=== PATIENT | female | born 1995 | race American Indian/Alaskan Native ===

== ENCOUNTER 2021-04-25 10:37 | Observation (INO) | payer OTHER ==
[2021-04-25] MEDS ORDERED: FAMOTIDINE 20 MG/2 ML INJ IV ONE (11:25)
[2021-04-25] MEDS ORDERED: diphenhydrAMINE 50 MG/ML VIAL IV ONE (11:25)
[2021-04-25] MEDS ORDERED: DICYCLOMINE 20 MG TAB PO ONE (11:25)
[2021-04-25] MEDS ORDERED: SODIUM CHLORIDE 0.9% 1000 ML 1,000 ML IV ONE (11:25)
[2021-04-25] MEDS ORDERED: METOCLOPRAMIDE 10 MG/2 ML INJ IV ONE (11:25)
[2021-04-25 11:35] LABS: Basophils # (Auto) 0.1 K/mm3 (0.0-0.1); Basophils % (Auto) 0.3 % (0.0-1.8); Eosinophils # (Auto) 0.1 K/mm3 (0.0-0.4); Eosinophils % (Auto) 0.3 % (0.0-4.3); Hemoglobin 11.1 gm/dl (10.1-14.3); Lymphocytes # (Auto) 2.2 K/mm3 (1.2-5.4); Mean Corpuscular HGB Conc 32 % (30-34); Mean Corpuscular Volume 74 fl (79-97); Monocytes # (Auto) 1.3 K/mm3 (0.0-0.8); Monocytes % (Auto) 7.2 % (0.0-7.3); Platelet Count 291 K/mm3 (140-440); Red Blood Count 4.75 M/mm3 (3.65-5.03); Red Cell Distribution Width 14.3 % (13.2-15.2)
[2021-04-25 11:49] LABS: Bilirubin,Urine NEG (Negative); Blood,Urine SM (Negative); Color,Urine Yellow (Yellow); Mucus,Urine 2+ /HPF; Urobilinogen,Urine < 2.0 mg/dL (<2.0)
[2021-04-25 11:51] LABS: Alanine Aminotransferase 8 units/L (7-56); Albumin 4.3 g/dL (3.9-5); BUN/Creatinine Ratio 11; Blood Urea Nitrogen 9 mg/dL (7-17); Calcium 9.6 mg/dL (8.4-10.2); Hemolysis Index 11
--- NOTE | 2021-04-25 12:54 | Vascular Lab Report ---
. DUPLEX DOPPLER LOWER EXTREMITY VEINS, RIGHT INDICATION / CLINICAL INFORMATION: RL leg pain. TECHNIQUE: Duplex doppler imaging was performed through the veins of the right lower extremity using venous comp ression and other maneuvers. COMPARISON: None available. FINDINGS: RIGHT COMMON FEMORAL VEIN: Negative. RIGHT FEMORAL VEIN: Negative. RIGHT POPLITEAL VEIN: Negative. RIGHT CALF VEINS: Negative. ADDITIONAL FINDINGS: None. IMPRESSION: 1. No sonographic evidence for DVT in the right lower extremity. Signer Name: Adrian Mcmahon MD Signed: 04/25/2021 12:50 PM Workstation Name: [id number]
--- NOTE | 2021-04-25 13:29 | Cat Scan Report ---
CT abdomen pelvis w con INDICATION / CLINICAL INFORMATION: RLQ pain with n/v-PO AND IV CONTRAST. TECHNIQUE: Axial CT images were obtained through the abdomen and pelvis after 100 cc of Omnipaque [address] scans at this location are performed using CT dose reduction for ALARA by means of automated exposure control. COMPARISON: None available. FINDINGS: LOWER CHEST: No significant abnormality LIVER: No significant abnormality GALLBLADDER/BILIARY TREE: No significant abnormality PANCREAS: No significant abnormality SPLEEN: No significant abnormality ADRENALS: No significant abnormality KIDNEYS / URETER: No significant abnormality URINARY BLADDER: No significant abnormality REPRODUCTIVE ORGANS: No significant abnormality STOMACH / BOWEL: Small bowel and colon demonstrate no evidence of mechanical obstruction or inflammat ion. The appendix is borderline dilated, measuring 7 mm. There is mild periappendiceal fat stranding. LYMPH NODES: No significant adenopathy. VASCULATURE: No significant abnormality. OTHER: No free air, free fluid, or focal fluid collection is identified. SKELETAL SYSTEM: No acute osseous findings. IMPRESSION: 1. Borderline dilated appendix with mild periportal fat stranding. Findings are suspicious for early acute uncomplicated appendicitis. 2. No other acute abnormality. Signer Name: Adrian Mcmahon MD Signed: 04/25/2021 1:25 PM Workstation Name: [id number]
[2021-04-25] MEDS ORDERED: PIPERACIL/TAZOBACTA 4.5/NS 100 4.5 GM/100 ML VIAL IV ONE (13:38)
--- NOTE | 2021-04-25 13:54 | Emergency Department Report ---
ED Abdominal Pain HPI - General Chief Complaint: Abdominal Pain Stated Complaint: BACK PAIN/RT LEG PAIN/CRAMPS Time Seen by Provider: 04/25/21 10:59 Source: patient Mode of arrival: Ambulatory Limitations: No Limitations - History of Present Illness Initial Comments: This is a 26-year-old female nontoxic, well nourished in appearance, no acute signs of distress presents to the ED with c/o of nausea and vomiting and abdominal pain several days. Patient stated has radiation to right lower leg. Denies any recent travels, long car rides or recent hospital stays. Patient describes vomiting as food content and yellow gastric acid. Patient describes abdominal pain as sharp and aching with level of 8/10 primarily to right lower abdomen. Patient denies chest pain, short of breath, fever, hemoptysis, blood in stool, chills, headache, stiff neck, numbness or tingling. Patient denies any diarrhea or constipation. Denies any blood in stool. Patient denies any drug allergies or significant past medical history. MD Complaint: abdominal pain -: days(s) Location: RLQ Radiation: none Migration to: no migration Severity: mild Severity scale (0 -10): 8 Quality: aching Consistency: constant Improves With: nothing Worsens With: nothing Associated Symptoms: nausea, vomiting. denies: diarrhea, fever, chills, constipation, dysuria, hematemesis, hematochezia, melena, hematuria, anorexia, syncope - Related Data Allergies Allergy/AdvReac Type Severity Reaction Status Date / Time No Known Allergies Allergy Verified 04/25/21 10:50 ED Review of Systems ROS: Stated complaint: BACK PAIN/RT LEG PAIN/CRAMPS Other details as noted in HPI Comment: All other systems reviewed and negative Constitutional: denies: chills, fever Eyes: denies: eye pain, eye discharge, vision change ENT: denies: ear pain, throat pain Respiratory: denies: cough, shortness of breath, wheezing Cardiovascular: denies: chest pain, palpitations Endocrine: no symptoms reported Gastrointestinal: abdominal pain, nausea, vomiting. denies: diarrhea, constipation, hematemesis, melena, hematochezia Genitourinary: denies: urgency, dysuria, discharge Musculoskeletal: denies: back pain, joint swelling, arthralgia Skin: denies: rash, lesions Neurological: denies: headache, weakness, paresthesias Psychiatric: denies: anxiety, depression Hematological/Lymphatic: denies: easy bleeding, easy bruising ED Past Medical Hx - Past Medical History Previous Medical History?: Yes Additional medical history: SCD - Surgical History Past Surgical History?: No - Social History Smoking Status: Never Smoker Substance Use Type: None ED Physical Exam - General Limitations: No Limitations General appearance: alert, in no apparent distress - Head Head exam: Present: atraumatic, normocephalic - Eye Eye exam: Present: normal appearance - Neck Neck exam: Present: normal inspection, full ROM. Absent: lymphadenopathy - Respiratory Respiratory exam: Present: normal lung sounds bilaterally. Absent: respiratory distress, wheezes, rales, rhonchi, stridor, chest wall tenderness, accessory muscle use, decreased breath sounds, prolonged expiratory - Cardiovascular Cardiovascular Exam: Present: regular rate, normal rhythm, tachycardia, normal heart sounds. Absent: irregular rhythm, systolic murmur, diastolic murmur, rubs, gallop - GI/Abdominal GI/Abdominal exam: Present: soft, tenderness (RLQ), normal bowel sounds. Absent: distended, guarding, rebound, rigid, diminished bowel sounds - Extremities Exam Extremities exam: Present: normal inspection, full ROM, tenderness, normal capillary refill, calf tenderness. Absent: joint swelling - Expanded Lower Extremity Exam Right Hip exam: Present: normal inspection, full ROM. Absent: tenderness, swelling Upper Leg exam: Present: normal inspection, full ROM. Absent: tenderness, swelling Knee exam: Present: normal inspection, full ROM. Absent: tenderness, swelling Lower Leg exam: Present: normal inspection, full ROM, tenderness. Absent: swelling, abrasion, laceration, ecchymosis, deformity, crepidus, dislocation, erythema, palpable cord, Wade's sign Ankle exam: Present: normal inspection, full ROM. Absent: tenderness, swelling Foot/Toe exam: Present: normal inspection, full ROM. Absent: tenderness, swelling Neuro vascular tendon exam: Present: no vascular compromise Gait: Positive: observed and normal 1 - Pain here 2 - Pain here - Back Exam Back exam: Present: normal inspection, full ROM. Absent: tenderness, CVA tenderness (R), CVA tenderness (L), muscle spasm, paraspinal tenderness, vertebral tenderness, rash noted - Neurological Exam Neurological exam: Present: alert, oriented X3, normal gait - Psychiatric Psychiatric exam: Present: normal affect, normal mood - Skin Skin exam: Present: warm, dry, intact, normal color. Absent: rash ED Course Vital Signs 04/25/21 10:50 Temperature 99.3 F Pulse Rate 107 H Respiratory 18 Rate Blood Pressure 126/84 O2 Sat by Pulse 99 Oximetry - Reevaluation(s) Reevaluation #1: 04/25/21 13:55 Patient is speaking in full sentences with no signs of distress noted. - Consultations Consultation #1: 04/25/21 14:17 Patient has been consulted with Duncan Mistry (general surgery) about patient history, physical exam, and labs/imaging results and agrees for admission with hospitalist with patient on NPO and continue antibiotics. Consultation #2: 04/25/21 14:52 Patient has been consulted with Dr. Meza about patient history, physical exam, and labs/imaging results and accepts patient to services. ED Medical Decision Making - Lab Data Result diagrams: 04/25/21 11:18 04/25/21 11:18 Lab Results 04/25/21 04/25/21 04/25/21 Range/Units 11:18 11:18 11:18 WBC 18.7 H (4.5-11.0) K/mm3 RBC 4.75 (3.65-5.03) M/mm3 Hgb 11.1 (10.1-14.3) gm/dl Hct 35.0 (30.3-42.9) % MCV 74 L (79-97) fl MCH 24 L (28-32) pg MCHC 32 (30-34) % RDW 14.3 (13.2-15.2) % Plt Count 291 (140-440) K/mm3 Lymph % (Auto) 12.0 L (13.4-35.0) % [place] % (Auto) 7.2 (0.0-7.3) % Eos % (Auto) 0.3 (0.0-4.3) % Baso % (Auto) 0.3 (0.0-1.8) % Lymph # (Auto) 2.2 (1.2-5.4) K/mm3 [place] # (Auto) 1.3 H (0.0-0.8) K/mm3 Eos # (Auto) 0.1 (0.0-0.4) K/mm3 Baso # (Auto) 0.1 (0.0-0.1) K/mm3 Seg Neutrophils % 80.2 H (40.0-70.0) % Seg Neutrophils # 15.0 H (1.8-7.7) K/mm3 Sodium 136 L (137-145) mmol/L Potassium 4.1 (3.6-5.0) mmol/L Chloride 99.5 (98-107) mmol/L Carbon Dioxide 23 (22-30) mmol/L Anion Gap 18 mmol/L BUN 9 (7-17) mg/dL Creatinine 0.8 (0.6-1.2) mg/dL Estimated GFR > 60 ml/min BUN/Creatinine Ratio 11 % Glucose 98 (65-100) mg/dL Calcium 9.6 (8.4-10.2) mg/dL Total Bilirubin 0.80 (0.1-1.2) mg/dL AST 14 (5-40) units/L ALT 8 (7-56) units/L Alkaline Phosphatase 54 (35-129) units/L Total Protein 8.3 H (6.3-8.2) g/dL Albumin 4.3 (3.9-5) g/dL Albumin/Globulin Ratio 1.1 % Lipase 14 (13-60) units/L HCG, Qual Negative (Negative) Urine Color (Yellow) Urine Turbidity (Clear) Urine pH (5.0-7.0) Ur Specific [place] (1.003-1.030) Urine Protein (Negative) mg/dL Urine Glucose (UA) (Negative) mg/dL Urine Ketones (Negative) mg/dL Urine Blood (Negative) Urine Nitrite (Negative) Urine Bilirubin (Negative) Urine Urobilinogen (<2.0) mg/dL Ur Leukocyte Esterase (Negative) Urine WBC (Auto) (0.0-6.0) /HPF Urine RBC (Auto) (0.0-6.0) /HPF U Epithel Cells (Auto) (0-13.0) /HPF Urine Mucus /HPF 04/25/21 Range/Units 11:31 WBC (4.5-11.0) K/mm3 RBC (3.65-5.03) M/mm3 Hgb (10.1-14.3) gm/dl Hct (30.3-42.9) % MCV (79-97) fl MCH (28-32) pg MCHC (30-34) % RDW (13.2-15.2) % Plt Count (140-440) K/mm3 Lymph % (Auto) (13.4-35.0) % [place] % (Auto) (0.0-7.3) % Eos % (Auto) (0.0-4.3) % Baso % (Auto) (0.0-1.8) % Lymph # (Auto) (1.2-5.4) K/mm3 [place] # (Auto) (0.0-0.8) K/mm3 Eos # (Auto) (0.0-0.4) K/mm3 Baso # (Auto) (0.0-0.1) K/mm3 Seg Neutrophils % (40.0-70.0) % Seg Neutrophils # (1.8-7.7) K/mm3 Sodium (137-145) mmol/L Potassium (3.6-5.0) mmol/L Chloride (98-107) mmol/L Carbon Dioxide (22-30) mmol/L Anion Gap mmol/L BUN (7-17) mg/dL Creatinine (0.6-1.2) mg/dL Estimated GFR ml/min BUN/Creatinine Ratio % Glucose (65-100) mg/dL Calcium (8.4-10.2) mg/dL Total Bilirubin (0.1-1.2) mg/dL AST (5-40) units/L ALT (7-56) units/L Alkaline Phosphatase (35-129) units/L Total Protein (6.3-8.2) g/dL Albumin (3.9-5) g/dL Albumin/Globulin Ratio % Lipase (13-60) units/L HCG, Qual (Negative) Urine Color Yellow (Yellow) Urine Turbidity Slightly-cloudy (Clear) Urine pH 5.0 (5.0-7.0) Ur Specific [place] 1.025 (1.003-1.030) Urine Protein 30 mg/dl (Negative) mg/dL Urine Glucose (UA) Neg (Negative) mg/dL Urine Ketones 20 (Negative) mg/dL Urine Blood Sm (Negative) Urine Nitrite Neg (Negative) Urine Bilirubin Neg (Negative) Urine Urobilinogen < 2.0 (<2.0) mg/dL Ur Leukocyte Esterase Mod (Negative) Urine WBC (Auto) 131.0 H (0.0-6.0) /HPF Urine RBC (Auto) 9.0 (0.0-6.0) /HPF U Epithel Cells (Auto) 9.0 (0-13.0) /HPF Urine Mucus 2+ /HPF - Radiology Data [facility] [address] [place] [address] Cat Scan Report Signed Patient: KELSEY ADAMS MR#: [id number] 5 : 1995 Acct:[id number] Age/Sex: 26 / F ADM Date: 04/25/21 Loc: ED Attending Dr: Ordering Physician: CELENA RENEE NP Date of Service: 04/25/21 Procedure(s): CT abdomen pelvis w con Accession Number(s): [id number] cc: CELENA RENEE NP CT abdomen pelvis w con INDICATION / CLINICAL INFORMATION: RLQ pain with n/v-PO AND IV CONTRAST. TECHNIQUE: Axial CT images were obtained through the abdomen and pelvis after 100 cc of Omnipaque [address] scans at this location are performed using CT dose reduction for ALARA by means of automated exposure control. COMPARISON: None available. FINDINGS: LOWER CHEST: No significant abnormality LIVER: No significant abnormality GALLBLADDER/BILIARY TREE: No significant abnormality PANCREAS: No significant abnormality SPLEEN: No significant abnormality ADRENALS: No significant abnormality KIDNEYS / URETER: No significant abnormality URINARY BLADDER: No significant abnormality REPRODUCTIVE ORGANS: No significant abnormality STOMACH / BOWEL: Small bowel and colon demonstrate no evidence of mechanical obstruction or inflammation. The appendix is borderline dilated, measuring 7 mm. There is mild periappendiceal fat stranding. LYMPH NODES: No significant adenopathy. VASCULATURE: No significant abnormality. OTHER: No free air, free fluid, or focal fluid collection is identified. SKELETAL SYSTEM: No acute osseous findings. IMPRESSION: 1. Borderline dilated appendix with mild periportal fat stranding. Findings are suspicious for early acute uncomplicated appendicitis. 2. No other acute abnormality. Signer Name: Shoaib Mcmahon MD Signed: 04/25/2021 1:25 PM Workstation Name: [id number] Transcribed By: YANCY Dictated By: SHOAIB MCMAHON MD Electronically Authenticated By: SHOAIB MCMAHON MD Signed Date/Time: 04/25/21 1325 DD/ 21 TD/TT: [facility] [address] [place] [address] Vascular Lab Report Signed Patient: KELSEY ADAMS MR#: [id number] 5 : 1995 Acct:[id number] Age/Sex: 26 / F ADM Date: 04/25/21 Loc: ED Attending Dr: Ordering Physician: CELENA RENEE NP Date of Service: 04/25/21 Procedure(s): VL venous duplex LE RT Accession Number(s): [id number] cc: CELENA RENEE NP . DUPLEX DOPPLER LOWER EXTREMITY VEINS, RIGHT INDICATION / CLINICAL INFORMATION: RL leg pain. TECHNIQUE: Duplex doppler imaging was performed through the veins of the right lower extremity using venous compression and other maneuvers. COMPARISON: None available. FINDINGS: RIGHT COMMON FEMORAL VEIN: Negative. RIGHT FEMORAL VEIN: Negative. RIGHT POPLITEAL VEIN: Negative. RIGHT CALF VEINS: Negative. ADDITIONAL FINDINGS: None. IMPRESSION: 1. No sonographic evidence for DVT in the right lower extremity. Signer Name: Shoaib Mcmahon MD Signed: 04/25/2021 12:50 PM Workstation Name: [id number] Transcribed By: YANCY Dictated By: SHOAIB MCMAHON MD Electronically Authenticated By: SHOAIB MCMAHON MD Signed Date/Time: 04/25/21 125 DD/ 49 TD/TT: - Medical Decision Making 26-year-old female that presents with UTI, appendicitis and right leg strain. Patient is stable and was examined by me. Patient placed on n.p.o. Patient received Zosyn IV with medical resuscitation in ER. Patient consulted with surgery Dr. Quiles which agrees with patient and admitted with hospitalist Dr. Meza. Patient is notified of the imaging and lab results with no questions noted by the patient. At time of admission, the patient does not seem toxic or ill in appearance. No acute signs of distress noted. Patient agrees to admission treatment plan of care. No further questions noted by the patient. Critical care attestation.: If time is entered above; I have spent that time in minutes in the direct care of this critically ill patient, excluding procedure time. ED Disposition Clinical Impression: Appendicitis Qualifiers: Appendicitis type: acute appendicitis Acute appendicitis type: unspecified acute appendicitis type Qualified Code(s): K35.80 - Unspecified acute appendicitis Muscle strain of right lower leg Qualifiers: Encounter type: initial encounter Qualified Code(s): S86.911A - Strain of unspecified muscle(s) and tendon(s) at lower leg level, right leg, initial encounter UTI (urinary tract infection) Qualifiers: Urinary tract infection type: acute cystitis Hematuria presence: with hematuria Qualified Code(s): N30.01 - Acute cystitis with hematuria Disposition: 09 ADMITTED INPATIENT Is pt being admited?: Yes Condition: Stable Instructions: Abdominal Pain (ED)
[2021-04-25] MEDS ORDERED: oxyCODONE /ACETAMINOPHEN 5-325MG TAB PO PRN (14:59)
[2021-04-25] MEDS ORDERED: ONDANSETRON 4 MG/2 ML INJ IV PRN ×2 (14:59→15:36)
[2021-04-25] MEDS ORDERED: ACETAMINOPHEN 325 MG TAB PO PRN (14:59)
[2021-04-25] MEDS ORDERED: ALBUTEROL 2.5 MG/3 ML NEBU IH PRN (14:59)
[2021-04-25] MEDS ORDERED: HYDROmorphone 1 MG/1 ML INJ IV PRN ×2 (14:59→15:36)
--- NOTE | 2021-04-25 14:59 | History and Physical Report ---
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 Patient reports "my stomach hurts". Patient states that she has experienced abdominal pain,, multiple episodes of vomiting over the past 3 days with persistent symptoms over the same timeframe. Patient also reported redness and swelling to the right lower extremity. Patient transported to [facility] via private vehicle for further care and evaluation of the aforementioned symptoms. The patient was seen and evaluated in the emergency department. All lab and imaging studies reviewed. Patient with CT scan of the abdomen and pelvis which revealed evidence of acute appendicitis. Surgery team consulted in ED. Patient pending surgical intervention. Patient denies fever, chills, chest pain, palpitation, productive cough, skin rash, recent ill contact, or known exposure to COVID-19. No prior admission for review. No medication listed at time of admission reconciliation. Past History Past Medical History: other (See HPI.) Past Surgical History: No surgical history, Other (Reviewed) Social history: no significant social history, other (Reviewed) Family history: no significant family history, other (Reviewed) Medications and Allergies Allergies Allergy/AdvReac Type Severity Reaction Status Date / Time No Known Allergies Allergy Verified 04/25/21 10:50 Review of Systems Constitutional: no weight loss, no weight gain, no fever, no chills Ears, nose, mouth and throat: no ear pain, no ear discharge, no decreased hearing, no nose pain, no nasal discharge Breasts: no change in shape, no mass Cardiovascular: no orthopnea, no rapid/irregular heart beat, no edema, no lightheadedness Respiratory: no cough, no excessive sputum, no hemoptysis, no dyspnea on exertion Gastrointestinal: abdominal pain, nausea, vomiting, no diarrhea, no constipation, no change in bowel habits, no hematemesis Genitourinary Female: no pelvic pain, no flank pain, no dysuria, no urinary frequency, no urgency Rectal: no pain, no incontinence, no bleeding, no hemorrhoids Musculoskeletal: no neck stiffness, no neck pain, no shooting arm pain, no shooting leg pain, no redness of joints Integumentary: no rash, no pruritis, no sores, no jaundice, no boils, no lesions, no acne, no unusual bruising Neurological: no head injury, no paralysis, no numbness, no tingling, no seizures, no syncope, no tremors, no ataxia, no aphasia Psychiatric: no anxiety, no memory loss, no sleep disturbances, no change in libido Endocrine: no cold intolerance, no polyphagia, no polydipsia, no excessive sweating Hematologic/Lymphatic: no easy bruising, no easy bleeding, no lymphedema Allergic/Immunologic: no urticaria, no allergic rhinitis, no anaphylaxis, no angioedema Exam - Constitutional Vitals: Temp Pulse Resp BP Pulse Ox 99.3 F 107 H 18 126/84 99 04/25/21 10:50 04/25/21 10:50 04/25/21 10:50 04/25/21 10:50 04/25/21 10:50 General appearance: Present: mild distress - EENT Eyes: Present: PERRL ENT: hearing intact, clear oral mucosa - Neck Neck: Present: supple, normal ROM - Respiratory Respiratory effort: normal Respiratory: bilateral: CTA - Cardiovascular Heart Sounds: Present: S1 & S2. Absent: rub, click - Extremities Extremities: pulses symmetrical, No edema Peripheral Pulses: within normal limits - Abdominal General gastrointestinal: Present: soft, non-tender, tender, non-distended, normal bowel sounds Localized gastrointestinal: tender: RLQ Female genitourinary: Present: normal - Integumentary Integumentary: Present: clear, warm, dry - Musculoskeletal Musculoskeletal: gait normal, strength equal bilaterally - Psychiatric Psychiatric: appropriate mood/affect, intact judgment & insight - Neurologic Neurologic: CNII-XII intact, moves all extremities Results - Labs CBC & Chem 7: 04/25/21 11:18 04/25/21 11:18 Labs: Abnormal lab results 04/25/21 04/25/21 04/25/21 Range/Units 11:18 11:18 11:31 WBC 18.7 H (4.5-11.0) K/mm3 MCV 74 L (79-97) fl MCH 24 L (28-32) pg Lymph % (Auto) 12.0 L (13.4-35.0) % [place] # (Auto) 1.3 H (0.0-0.8) K/mm3 Seg Neutrophils % 80.2 H (40.0-70.0) % Seg Neutrophils # 15.0 H (1.8-7.7) K/mm3 Sodium 136 L (137-145) mmol/L Total Protein 8.3 H (6.3-8.2) g/dL Urine WBC (Auto) 131.0 H (0.0-6.0) /HPF Assessment and Plan - Patient Problems (1) Appendicitis Current Visit: Yes Status: Acute Qualifiers: Appendicitis type: acute appendicitis Acute appendicitis type: unspecified acute appendicitis type Qualified Code(s): K35.80 - Unspecified acute appendicitis Plan to address problem: Surgery team consulted in ED. CT scan abdomen and pelvis. Patient pending surgical intervention as per surgical team, bowel rest, n.p.o., IV fluid resuscitation therapy. (2) Systemic inflammatory response syndrome Current Visit: Yes Status: Acute Plan to address problem: CBC, CMP, urinalysis, chest x-ray, IV antibiotic therapy, repeat CBC in a.m. (3) Muscle strain of right lower leg Current Visit: Yes Status: Acute Qualifiers: Encounter type: initial encounter Qualified Code(s): S86.911A - Strain of unspecified muscle(s) and tendon(s) at lower leg level, right leg, initial encounter Plan to address problem: Supportive care, NSAID therapy, (4) UTI (urinary tract infection) Current Visit: Yes Status: Acute Qualifiers: Urinary tract infection type: acute cystitis Hematuria presence: with hematuria Qualified Code(s): N30.01 - Acute cystitis with hematuria Plan to address problem: IV antibiotic therapy, urinalysis, CBC, repeat CBC in a.m. (5) DVT prophylaxis Current Visit: Yes Status: Acute Plan to address problem: SCD to bilateral lower extremities while in bed, patient is ambulatory.
[2021-04-25] MEDS ORDERED: SODIUM CHLORIDE 0.9% 1000 ML 1,000 ML IV SCH (15:00)
[2021-04-25] MEDS ORDERED: BUPIVACAINE/PF (0.5%) 5 MG/1 ML 30 ML VIAL INFILTRATI ONE ×2 (15:44→16:45)
[2021-04-25] MEDS ORDERED: LIDOCAINE (1%) 10 MG/1 ML VIAL 20 ML MDV ONE (15:45)
[2021-04-25] MEDS ORDERED: fentaNYL 100 MCG/2 ML INJ ONE ×2 (15:48→16:47)
[2021-04-25] MEDS ORDERED: LIDOCAINE MPF (2%) 20 MG/1 ML VIAL 5 ML ONE (15:48)
[2021-04-25] MEDS ORDERED: MIDAZOLAM 2 MG/2 ML INJ ONE (15:48)
[2021-04-25] MEDS ORDERED: ROCURONIUM 50 MG/5 ML INJ IV ONE (15:48)
[2021-04-25] MEDS ORDERED: propofoL 200 MG/20 ML VIAL IV ONE (15:49)
[2021-04-25] MEDS ORDERED: dexAMETHasone 20 MG/5 ML VIAL ONE (15:49)
[2021-04-25] MEDS ORDERED: metroNIDAZOLE/NS 500 MG/100 ML 500 MG/100 ML BAG IV SCH (16:00)
--- NOTE | 2021-04-25 16:04 | Consultation ---
History of Present Illness Consult date: 04/25/21 Reason for consult: abdominal pain Chief complaint: abd pain - History of present illness History of present illness: 26 yo F with PMHx sickle cell d/o who presents to ER with 3 days of worsening abdominal pain. Pain is sharp, periumbilical, radiating to the lower abdomen. No inciting factors. Walking makes it worse. Pain meds given in ER have controlled the pain. Fever yesterday of 101. +n/v yesterday. Patient also c/o crampy pain in RLE for which venous u/s was performed and negative. Ct A/P demonstrates appendicitis, surgery consulted for further management. Has not been exposed to anyone with COVID and recent COVID testing was negative. Past History Past Medical History: other (sickle cell) Past Surgical History: No surgical history Social history: no significant social history Family history: no significant family history Medications and Allergies Allergies Allergy/AdvReac Type Severity Reaction Status Date / Time No Known Allergies Allergy Verified 04/25/21 10:50 Active Meds: Active Medications Acetaminophen (Acetaminophen 325 Mg Tab) 650 mg PO Q4H PRN PRN Reason: Pain MILD(1-3)/Fever >100.5/MALIK Albuterol (Albuterol 2.5 Mg/3 Ml Nebu) 2.5 mg IH Q4H PRN PRN Reason: Shortness Of Breath Hydromorphone HCl (Hydromorphone 1 Mg/1 Ml Inj) 0.5 mg IV Q6H PRN PRN Reason: Pain , Severe (7-10) Hydromorphone HCl (Hydromorphone 1 Mg/1 Ml Inj) 0.5 mg IV Q10MIN PRN PRN Reason: Pain , Severe (7-10) Sodium Chloride (Nacl 0.9% 1000 Ml) 1,000 mls @ 125 mls/hr IV DIRECT NAGA Levofloxacin/Dextrose (Levaquin 500mg/100ml) 500 mg in 100 mls @ 100 mls/hr IV Q24H NAGA; Protocol Metronidazole (Flagyl 500 Mg/100 Ml) 500 mg in 100 mls @ 100 mls/hr IV Q8H NAGA; Protocol Stop: 04/26/21 23:59 Ondansetron HCl (Ondansetron 4 Mg/2 Ml Inj) 4 mg IV Q8H PRN PRN Reason: Nausea And Vomiting Ondansetron HCl (Ondansetron 4 Mg/2 Ml Inj) 4 mg IV ONCE PRN PRN Reason: Nausea And Vomiting Oxycodone/Acetaminophen (Oxycodone /Acetaminophen 5-325mg Tab) 1 tab PO Q16H PRN PRN Reason: Pain, Moderate (4-6) Sodium Chloride (Sodium Chloride 0.9% 10 Ml Flush Syringe) 10 ml IV BID NAGA Sodium Chloride (Sodium Chloride 0.9% 10 Ml Flush Syringe) 10 ml IV PRN PRN PRN Reason: LINE FLUSH Review of Systems All systems: negative (10 pt ROS peformed and negative except for that listed in HPI) Exam Vital Signs Temp Pulse Resp BP Pulse Ox 99.3 F 107 H 18 126/84 99 04/25/21 10:50 04/25/21 10:50 04/25/21 10:50 04/25/21 10:50 04/25/21 10:50 Narrative exam: Gen: AAOx3. NAD ENT: no icterus CV: s1, S2+ resp: even and unlabored Abd: soft, ND, periumbilical and lower abd TTP. No r/r/g Ext: no c/c/e Results - Labs 04/25/21 11:18 04/25/21 11:18 Abnormal lab results 04/25/21 04/25/21 04/25/21 Range/Units 11:18 11:18 11:31 WBC 18.7 H (4.5-11.0) K/mm3 MCV 74 L (79-97) fl MCH 24 L (28-32) pg Lymph % (Auto) 12.0 L (13.4-35.0) % [place] # (Auto) 1.3 H (0.0-0.8) K/mm3 Seg Neutrophils % 80.2 H (40.0-70.0) % Seg Neutrophils # 15.0 H (1.8-7.7) K/mm3 Sodium 136 L (137-145) mmol/L Total Protein 8.3 H (6.3-8.2) g/dL Urine WBC (Auto) 131.0 H (0.0-6.0) /HPF Diabetes panel 04/25/21 Range/Units 11:18 Sodium 136 L (137-145) mmol/L Potassium 4.1 (3.6-5.0) mmol/L Chloride 99.5 (98-107) mmol/L Carbon Dioxide 23 (22-30) mmol/L BUN 9 (7-17) mg/dL Creatinine 0.8 (0.6-1.2) mg/dL Glucose 98 (65-100) mg/dL Calcium 9.6 (8.4-10.2) mg/dL AST 14 (5-40) units/L ALT 8 (7-56) units/L Alkaline Phosphatase 54 (35-129) units/L Total Protein 8.3 H (6.3-8.2) g/dL Albumin 4.3 (3.9-5) g/dL Calcium panel 04/25/21 Range/Units 11:18 Calcium 9.6 (8.4-10.2) mg/dL Albumin 4.3 (3.9-5) g/dL Pituitary panel 04/25/21 Range/Units 11:18 Sodium 136 L (137-145) mmol/L Potassium 4.1 (3.6-5.0) mmol/L Chloride 99.5 (98-107) mmol/L Carbon Dioxide 23 (22-30) mmol/L BUN 9 (7-17) mg/dL Creatinine 0.8 (0.6-1.2) mg/dL Glucose 98 (65-100) mg/dL Calcium 9.6 (8.4-10.2) mg/dL Adrenal panel 04/25/21 Range/Units 11:18 Sodium 136 L (137-145) mmol/L Potassium 4.1 (3.6-5.0) mmol/L Chloride 99.5 (98-107) mmol/L Carbon Dioxide 23 (22-30) mmol/L BUN 9 (7-17) mg/dL Creatinine 0.8 (0.6-1.2) mg/dL Glucose 98 (65-100) mg/dL Calcium 9.6 (8.4-10.2) mg/dL Total Bilirubin 0.80 (0.1-1.2) mg/dL AST 14 (5-40) units/L ALT 8 (7-56) units/L Alkaline Phosphatase 54 (35-129) units/L Total Protein 8.3 H (6.3-8.2) g/dL Albumin 4.3 (3.9-5) g/dL - Imaging CT scan - abdomen: report reviewed, image reviewed CT scan - pelvis: report reviewed, image reviewed Assessment and Plan 26 yo F with acute appendicitis Plan: 1. NPo 2. IVF 3. prn pain control 4. DVT ppx 5. IV abx - zosyn 6. Recommend appendectomy. Discussed all risks, benefits, alternatives to surgery with patient and questions answered. Pt agreeable to proceed with surgery and has notified family. Consent obtained. Thank you, please call with questions.
[2021-04-25] MEDS ORDERED: GLYCOPYRROLATE 0.4 MG/2 ML INJ ONE (16:40)
[2021-04-25] MEDS ORDERED: NEOSTIGMINE 10MG/10 ML INJ MDV ONE (16:40)
[2021-04-25] MEDS ORDERED: SODIUM CHLORIDE 0.9% IRR 1,500 ML BOTTLE IR ONE (16:45)
[2021-04-25] MEDS ORDERED: LIDOCAINE (1%) 10 MG/1 ML VIAL 20 ML MDV INFILTRATI ONE (16:45)
--- NOTE | 2021-04-25 17:11 | Operative Report ---
Operative Report Operative Report: Date of operation: 04/25/2021 Preoperative diagnosis: acute appendicitis Postoperative diagnosis: Acute appendicitis Procedure performed: Laparoscopic appendectomy Surgeon: Aftab Quiles DO Anesthesia: GETA Findings: Dilated appendix with mild inflammation EBL:<10cc Specimen: appendix Disposition/Condition: stable to PACU HPI and indication: 26-year-old female presented to ER with periumbilical and lower abdominal pain for 3 days. Pain was associated with nausea and vomiting, fever up to 101. Work-up revealed leukocytosis and CT scan findings of acute appendicitis. It was recommended that the patient undergo appendectomy. All risks, benefits, alternatives to surgery were discussed with the patient qu estions answered. Consent obtained Procedure in detail: Patient was identified in the preop area and taken back to the OR and placed on the OR table in supine position. After anesthesia was induced a downing catheter was steriley placed by the circulating nurse. A time out was performed. Local anesthetic was infilitrated into all skin incision sites. A supraumbilical incision was using a 11 blade through which a Veress needle was inserted. The Veress needle positioning was confirmed using the saline drop test and the abdomen insufflated to 15 mmHg without incident. The veress needle was wit hdrawn and a 5mm Optiview trocar placed under direct visualization. The abdomen was inspected and no underlying injury to the abdominal structures was identified. A 5mm trocar suprapubic and a 12 mm LLQ trocar were placed under direct visualization. Patient was placed in Trendelenburg and tilted to the left. The appendix was visualized and noted to be dilated with mild inflammation. The appendix was grasped and retracted in order to identify the base. The mesentery of the appendix was ligated using the harmonic scalpel. The base of the appendix was transected using an ethicon flex stapler 45mm white load. The appendix was placed into an endocatch bag and removed via the 12 mm port. This was passed off the table as specimen. The staple line and mesentery were then inspected and no bleeding visualized. Hemostasis was ensured. The 12 mm port fascia was closed using 2 interrupted 0 Vicryl stitches with a Thomas Monge device. The remaining port were removed under direct visualizati on and the abdomen desufflated. All skin incisions were closed using 4-0 monocryl subcuticular stitches and skin glue. All skin incisions were once again infiltrated with local anesthetic. At the end of the case, all sponge, instrument, sharp counts were correct x2. The patient was awoken from anesthesia, downing catheter removed, and taken to PACU in stable condition. The patient's mother was updated.
--- NOTE | 2021-04-25 17:17 | Anesthesia Day of Surgery ---
Anesthesia Day of Surgery - Day of Surgery Patient Examined: Yes Patient H&P Reviewed: Yes Patient is NPO: Yes
--- NOTE | 2021-04-25 17:17 | Anesthesia Consultation ---
Anesthesia Consult and Med Hx Date of service: 04/25/21 - Airway Anesthetic Teeth Evaluation: Good (braces) ROM Head & Neck: Adequate Mental/Hyoid Distance: Adequate Mallampati Class: Class II Intubation Access Assessment: Probably Good - Pre-Operative Health Status ASA Pre-Surgery Classification: ASA2, Emergency Proposed Anesthetic Plan: General - Pulmonary Hx Smoking: No Hx Respiratory Symptoms: No - Cardiovascular System Hx Hypertension: No - Central Nervous System CVA: No - Endocrine Hx Renal Disease: No Hx Liver Disease: No Hx Insulin Dependent Diabetes: No Hx Non-Insulin Dependent Diabetes: No Hx Thyroid Disease: No - Hematic Hx Sickle Cell Disease: Yes - Other Systems Hx Obesity: No
[2021-04-25] MEDS: oxyCODONE /ACETAMINOPHEN 5-325MG TAB PO PRN (23:24)
[2021-04-26] MEDS: oxyCODONE /ACETAMINOPHEN 5-325MG TAB PO PRN (04:27)
[2021-04-26 04:54] LABS: Basophils # (Auto) 0.1 K/mm3 (0.0-0.1); Basophils % (Auto) 0.4 % (0.0-1.8); Hematocrit 33.2 % (30.3-42.9); Hemoglobin 10.7 gm/dl (10.1-14.3); Lymphocytes # (Auto) 1.2 K/mm3 (1.2-5.4); Lymphocytes % (Auto) 7.4 % (13.4-35.0); Mean Corpuscular HGB Conc 32 % (30-34); Mean Corpuscular Volume 73 fl (79-97); Monocytes # (Auto) 0.7 K/mm3 (0.0-0.8); Monocytes % (Auto) 4.5 % (0.0-7.3); Platelet Count 268 K/mm3 (140-440); Red Blood Count 4.52 M/mm3 (3.65-5.03); Red Cell Distribution Width 14.3 % (13.2-15.2)
[2021-04-26 05:15] LABS: BUN/Creatinine Ratio 11; Blood Urea Nitrogen 10 mg/dL (7-17); Calcium 9.2 mg/dL (8.4-10.2); Hemolysis Index 0
[2021-04-26] MEDS ORDERED: diphenhydrAMINE 25 MG CAP PO ONE (06:17)
--- NOTE | 2021-04-26 09:38 | Discharge Summary ---
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 Patient reports "my stomach hurts". Patient states that she has experienced abdominal pain,, multiple episodes of vomiting over the past 3 days with persistent symptoms over the same timeframe. Patient also reported redness and swelling to the right lower extremity. Patient transported to [facility] via private vehicle for further care and evaluation of the aforementioned symptoms. The patient was seen and evaluated in the emergency department. All lab and imaging studies reviewed. Patient with CT scan of the abdomen and pelvis which revealed evidence of acute appendicitis. Surgery team consulted in ED. Patient pending surgical intervention. Patient denies fever, chills, chest pain, palpitation, productive cough, skin rash, recent ill contact, or known exposure to COVID-19. No prior admission for review. No medication listed at time of admission reconciliation. Patient underwent Lap Stanley yesterday and is doing well this morning. she continues on her home abx for UTI. Pain control. (1) Appendicitis Current Visit: Yes Status: Acute Qualifiers: Appendicitis type: acute appendicitis Acute appendicitis type: unspecified acute appendicitis type Qualified Code(s): K35.80 - Unspecified acute appendicitis Plan to address problem: Surgery team consulted in ED. CT scan abdomen and pelvis. Patient pending surgical intervention as per surgical team, bowel rest, n.p.o., IV fluid resuscitation therapy. (2) Systemic inflammatory response syndrome Current Visit: Yes Status: Acute Plan to address problem: CBC, CMP, urinalysis, chest x-ray, IV antibiotic therapy, repeat CBC in a.m. (3) Muscle strain of right lower leg Current Visit: Yes Status: Acute Qualifiers: Encounter type: initial encounter Qualified Code(s): S86.911A - Strain of unspecified muscle(s) and tendon(s) at lower leg level, right leg, initial encounter Plan to address problem: Supportive care, NSAID therapy, (4) UTI (urinary tract infection) Current Visit: Yes Status: Acute Qualifiers: Urinary tract infection type: acute cystitis Hematuria presence: with hematuria Qualified Code(s): N30.01 - Acute cystitis with hematuria Plan to address problem: IV antibiotic therapy, urinalysis, CBC, repeat CBC in a.m. Disposition: HOME / SELF CARE / HOMELESS Final Discharge Diagnosis (Prints w/discharge instructions): Appendicitis Time spent for discharge: 35 MINS Core Measure Documentation - Palliative Care Palliative Care/ Comfort Measures: Not Applicable - Core Measures Any of the following diagnoses?: none Exam - Physical Exam Narrative exam: VITAL SIGNS: Reviewed. GENERAL: The patient appears normally developed, Vital signs as documented. HEAD: No signs of head trauma. EYES: Pupils are equal. Extraocular motions intact. EARS: Hearing grossly intact. MOUTH: Oropharynx is normal. NECK: No adenopathy, no JVD. CHEST: Chest with clear breath sounds bilaterally. No wheezes, rales, or rhonchi. CARDIAC: Regular rate and rhythm. S1 and S2, without murmurs, gallops, or rubs. VASCULAR: No Edema. Peripheral pulses normal and equal in all extremities. ABDOMEN: Soft, non tender and non distended. No rebound or guarding, and no masses palpated. Bowel Sounds normal. MUSCULOSKELETAL: Good range of motion of all major joints. Extremities without clubbing, cyanosis or edema. NEUROLOGIC EXAM: Alert and oriented x 3 No focal sensory or strength deficits. Speech normal. Follows commands. PSYCHIATRIC: Mood normal. SKIN: detail exam as documented in skin assessment - Constitutional Vitals: Temp Pulse Resp BP Pulse Ox 97.8 F 60 17 111/72 98 04/26/21 07:55 04/26/21 06:15 04/26/21 06:15 04/26/21 06:15 04/26/21 08:31 Plan Activity: advance as tolerated, fall precautions Diet: low fat Special Instructions: record daily weights, record daily BP diary Follow up with: TARUN BALDWIN DO [Staff Physician] - 7 Days PRIMARY CARE, [Primary Care Provider] - 7 Days Prescriptions: HYDROcodone/APAP 5-325 [[place] 5/325] 1 each PO Q6HR PRN #15 tablet PRN Reason: Pain , Severe (7-10)
[2021-04-26 12:41] VITALS: BP 105/63
== END 2021-04-26 12:16 | disposition home or self-care (01) ==
LOC: ED 10:37 → 3A 14:59
PROVIDERS: ADMIT Internal Medicine; ATTEND Internal Medicine
DX: K35.80 Unspecified acute appendicitis (principal); R65.10 Systemic inflammatory response syndrome (SIRS) of non-infectious origin without acute organ dysfunction; N39.0 Urinary tract infection, site not specified; S86.911A Strain of unspecified muscle(s) and tendon(s) at lower leg level, right leg, initial encounter; X58.XXXA Exposure to other specified factors, initial encounter; Y93.89 Activity, other specified; Y92.89 Other specified places as the place of occurrence of the external cause; Z79.899 Other long term (current) drug therapy
CPT/HCPCS: 36415; 44970; 74177; 80048; 80053; 81001; 83690; 84703; 85025; 88304; 93971; 96361; 96374; 96375; 99285; G0378; J1100; J1200; J1956; J2250; J2405; J2543; J2704; J2710; J2765; J3010; J7030; Q9967

== ENCOUNTER 2021-12-10 10:01 | Emergency (ER) | payer SELFPAY ==
[2021-12-10 10:24] VITALS: BP 120/74
== END 2021-12-10 16:10 | disposition left against medical advice (07) ==
LOC: ED 10:01
DX: L29.2 Pruritus vulvae (principal); Z53.21 Procedure and treatment not carried out due to patient leaving prior to being seen by health care provider

== ENCOUNTER 2022-04-17 11:27 | Emergency (ER) | payer SELFPAY ==
--- NOTE | 2022-04-17 12:02 | Event Note ---
ED Screening Note Date of service: 04/17/22 Time: 12:01 ED Screening Note: This initial assessment/diagnostic orders/clinical plan/treatment(s) is/are subject to change based on patients health status, clinical progression and re- assessment by fellow clinical providers in the ED. Further treatment and workup at subsequent clinical providers discretion. Patient/guardian urged not to elope from the ED as their condition may be serious if not clinically assessed and managed. Initial orders include: Active Orders 24 hr Category Date Time Status Complete Blood Count Auto Diff Stat Lab 04/17/22 11:59 Ordered Comprehensive Metabolic Panel Stat Lab 04/17/22 11:59 Ordered HCG Qualitative, Serum Stat Lab 04/17/22 11:59 Ordered Lipase Stat Lab 04/17/22 11:59 Ordered ua [Urinalysis Complete] Stat Lab 04/17/22 11:59 Ordered Patient with epigastric pain and BM immediately after eating for 2 weeks. Also indigestion. No fever, chills, nausea, vomiting, hematochezia or melena.
[2022-04-17 13:00] LABS: Basophils % (Auto) 0.4 % (0.0-1.8); Eosinophils # (Auto) 0.1 K/mm3 (0.0-0.4); Hematocrit 37.3 % (30.3-42.9); Hemoglobin 11.7 gm/dl (10.1-14.3); Lymphocytes # (Auto) 2.5 K/mm3 (1.2-5.4); Lymphocytes % (Auto) 40.6 % (13.4-35.0); Mean Corpuscular HGB Conc 31 % (30-34); Mean Corpuscular Volume 74 fl (79-97); Monocytes # (Auto) 0.7 K/mm3 (0.0-0.8); Monocytes % (Auto) 11.4 % (0.0-7.3); Platelet Count 231 K/mm3 (140-440); Red Blood Count 5.04 M/mm3 (3.65-5.03); Red Cell Distribution Width 14.3 % (13.2-15.2)
[2022-04-17 13:05] LABS: Alanine Aminotransferase 6 units/L (7-56); Albumin 4.6 g/dL (3.9-5); BUN/Creatinine Ratio 11; Blood Urea Nitrogen 9 mg/dL (7-17); Calcium 9.9 mg/dL (8.4-10.2); Hemolysis Index 5
--- NOTE | 2022-04-17 14:47 | Emergency Department Report ---
ED Abdominal Pain HPI - General Chief Complaint: Abdominal Pain Stated Complaint: IBS Time Seen by Provider: 04/17/22 11:59 Source: patient Mode of arrival: Ambulatory Limitations: No Limitations - History of Present Illness Initial Comments: 22-year-old female no significant past medical history reports to the ER with complaints of abdominal discomfort and frequent bowel movements for about a week patient reports she recently started eating food at her job and since then she has been having indigestion as well as frequent bowel movements throughout the day. Denies diarrhea but reports nausea no vomiting noted. No other acute signs or symptoms. Severity scale (0 -10): 2 - Related Data Previous Rx's Medication Instructions Recorded Last Taken Type HYDROcodone/APAP 5-325 [[place] 1 each PO Q6HR PRN #15 tablet 04/25/21 Unknown Rx 5/325] Allergies Allergy/AdvReac Type Severity Reaction Status Date / Time No Known Allergies Allergy Verified 04/25/21 10:50 ED Review of Systems ROS: Stated complaint: IBS Other details as noted in HPI Comment: All other systems reviewed and negative Gastrointestinal: abdominal pain, nausea. denies: vomiting, diarrhea ED Past Medical Hx - Past Medical History Previous Medical History?: Yes Hx Hypertension: No Hx GERD: Yes Hx Liver Disease: No Hx Renal Disease: No Hx Sickle Cell Disease: Yes Additional medical history: SCD, indigestion - Surgical History Past Surgical History?: Yes Hx Appendectomy: Yes - Social History Smoking Status: Never Smoker Substance Use Type: None - Medications Home Medications: Home Medications Medication Instructions Recorded Confirmed Last Taken Type HYDROcodone/APAP 5-325 [[place] 1 each PO Q6HR PRN #15 tablet 04/25/21 Unknown Rx 5/325] ED Physical Exam - General Limitations: No Limitations General appearance: alert, in no apparent distress - Head Head exam: Present: atraumatic, normocephalic - Eye Eye exam: Present: normal appearance - ENT ENT exam: Present: mucous membranes moist - Neck Neck exam: Present: normal inspection - Respiratory Respiratory exam: Present: normal lung sounds bilaterally. Absent: respiratory distress - Cardiovascular Cardiovascular Exam: Present: regular rate, normal rhythm. Absent: systolic murmur, diastolic murmur, rubs, gallop - GI/Abdominal GI/Abdominal exam: Present: soft, normal bowel sounds - Extremities Exam Extremities exam: Present: normal inspection - Back Exam Back exam: Present: normal inspection - Neurological Exam Neurological exam: Present: alert, oriented X3 - Psychiatric Psychiatric exam: Present: normal affect, normal mood - Skin Skin exam: Present: warm, dry, intact, normal color. Absent: rash ED Course Vital Signs 04/17/22 04/17/22 11:45 16:15 Temperature 98.1 F 98.4 F Pulse Rate 82 72 Respiratory 20 18 Rate Blood Pressure 123/68 112/70 [Right] O2 Sat by Pulse 100 99 Oximetry ED Medical Decision Making - Lab Data Result diagrams: 04/17/22 12:08 04/17/22 12:08 - Medical Decision Making 22-year-old female no significant past medical history reports to the ER with complaints of abdominal discomfort and frequent bowel movements for about a week patient reports she recently started eating food at her job and since then she has been having indigestion as well as frequent bowel movements throughout the day. Denies diarrhea but reports nausea no vomiting noted. No other acute signs or symptoms. No acute findings on physical exam. Patient is nontender on abdominal exam. No acute abdominal findings noted. CBC CMP unremarkable lipase negative. No UA is needed at this time as patient is having no urinary symptoms. 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 Patient encouraged to stop eating at the cafeteria for employment to take to work food from home. Patient informed to follow her primary care provider as well as a gastro provi victor m if symptoms are continued after the change.. Patient reports symptoms are to get worse to report to ER for further evaluation. The patient is a plan of care and verbalized understanding. Reported this time. Vital Signs 04/17/22 11:45 Temperature 98.1 F Pulse Rate 82 Respiratory 20 Rate Blood Pressure 123/68 [Right] O2 Sat by Pulse 100 Oximetry Vital Signs 04/17/22 04/17/22 11:45 16:15 Temperature 98.1 F 98.4 F Pulse Rate 82 72 Respiratory 20 18 Rate Blood Pressure 123/68 112/70 [Right] O2 Sat by Pulse 100 99 Oximetry Lab Results 04/17/22 04/17/22 04/17/22 Range/Units 12:08 12:08 12:08 WBC 6.1 (4.5-11.0) K/mm3 RBC 5.04 H (3.65-5.03) M/mm3 Hgb 11.7 (10.1-14.3) gm/dl Hct 37.3 (30.3-42.9) % MCV 74 L (79-97) fl MCH 23 L (28-32) pg MCHC 31 (30-34) % RDW 14.3 (13.2-15.2) % Plt Count 231 (140-440) K/mm3 Lymph % (Auto) 40.6 H (13.4-35.0) % [place] % (Auto) 11.4 H (0.0-7.3) % Eos % (Auto) 1.0 (0.0-4.3) % Baso % (Auto) 0.4 (0.0-1.8) % Lymph # (Auto) 2.5 (1.2-5.4) K/mm3 [place] # (Auto) 0.7 (0.0-0.8) K/mm3 Eos # (Auto) 0.1 (0.0-0.4) K/mm3 Baso # (Auto) 0.0 (0.0-0.1) K/mm3 Seg Neutrophils % 46.6 (40.0-70.0) % Seg Neutrophils # 2.9 (1.8-7.7) K/mm3 Sodium 139 (137-145) mmol/L Potassium 4.5 (3.6-5.0) mmol/L Chloride 106.1 (98-107) mmol/L Carbon Dioxide 21 L (22-30) mmol/L Anion Gap 16 mmol/L BUN 9 (7-17) mg/dL Creatinine 0.8 (0.6-1.2) mg/dL Estimated GFR > 60 ml/min BUN/Creatinine Ratio 11 % Glucose 85 (65-100) mg/dL Calcium 9.9 (8.4-10.2) mg/dL Total Bilirubin 0.70 (0.1-1.2) mg/dL AST 12 (5-40) units/L ALT 6 L (7-56) units/L Alkaline Phosphatase 45 (35-129) units/L Total Protein 7.4 (6.3-8.2) g/dL Albumin 4.6 (3.9-5) g/dL Albumin/Globulin Ratio 1.6 % Lipase 24 (13-60) units/L HCG, Qual Negative (Negative) Critical care attestation.: If time is entered above; I have spent that time in minutes in the direct care of this critically ill patient, excluding procedure time. ED Disposition Clinical Impression: Gastroenteritis Disposition: HOME / SELF CARE / HOMELESS Is pt being admited?: No Condition: Stable Instructions: Viral Gastroenteritis, Adult, [id number], Food Choices to Help Relieve Diarrhea, Adult, Abdominal Pain (ED) Referrals: ALEJANDRO PADILLA MD [Primary Care Provider] - 3-5 Days Forms: Work/School Release Form(ED)
[2022-04-17 16:17] VITALS: BP 112/70
== END 2022-04-17 15:49 | disposition home or self-care (01) ==
LOC: ED 11:27
DX: K52.9 Noninfective gastroenteritis and colitis, unspecified (principal); K21.9 Gastro-esophageal reflux disease without esophagitis; Z98.890 Other specified postprocedural states; Z90.49 Acquired absence of other specified parts of digestive tract; Z79.899 Other long term (current) drug therapy
CPT/HCPCS: 36415; 80053; 83690; 84703; 85025; 99283